=== PATIENT | female | born 1960 | race Caucasian/White ===

== ENCOUNTER 2017-10-06 18:06 | Emergency (ER) | payer BC ==
[2017-10-06 18:21] VITALS: BP 143/70
--- NOTE | 2017-10-06 18:32 | EDM.PDOC ---
ED HPI GENERAL MEDICAL PROBLEM - General Chief Complaint: General Stated Complaint: WEAKNESS Time Seen by Provider: 10/06/17 18:15 Source of Information: Reports: Patient, Family History Limitations: Reports: No Limitations - History of Present Illness INITIAL COMMENTS - FREE TEXT/NARRATIVE: 57 years old w f came with er SO to the ed after working for 1 week 16 hours a day. She denies any medical issues, no n/v/d no dizziness. get drug and ETOH tested at work on a regular basis, denies dysuria, denies any medical issues and refuses lab tests. No N/V/D or any other acute medical issues. BP 143/70 puls 50 temp 97.4 O2 100% on RA PE; WNWD W F extremely exhausted after working for 1 week a 16 hours shift daily Labs: Refus, gets drug and ETOH tested regularly at work Impression: Physical exhaustion Plan: D/C with instructions Onset Date: 09/29/17 Onset Time: 09:00 Duration: Week(s):, Getting Worse Location: Reports: Generalized Severity: Moderate Improves with: Reports: Rest Worsens with: Reports: Other (activity) Context: Reports: Other (physical exchaustion at work) - Related Data Allergies Allergy/AdvReac Type Severity Reaction Status Date / Time Penicillins Allergy Other Verified 10/06/17 18:18 Home Meds: Home Meds .Magnesium 1 tab PO DAILY 10/06/17 [History] Past Medical History Gastrointestinal History: Reports: Cholelithiasis [employer] History: Reports: Neurological History: Reports: Seizure - Past Surgical History Neurological Surgical History: Reports: Other (See Below) Social & Family History - Tobacco Use Smoking Status *Q: Never Smoker Second Hand Smoke Exposure: Yes - Caffeine Use Caffeine Use: Reports: None - Recreational Drug Use Recreational Drug Use: No ED ROS GENERAL - Review of Systems Review Of Systems: See Below Constitutional: Reports: Other (tired) HEENT: Reports: No Symptoms Respiratory: Reports: No Symptoms Cardiovascular: Reports: No Symptoms Endocrine: Reports: No Symptoms GI/Abdominal: Reports: No Symptoms : Reports: No Symptoms Musculoskeletal: Reports: No Symptoms Skin: Reports: No Symptoms Neurological: Reports: Other (extremely tired) Psychiatric: Reports: No Symptoms Hematologic/Lymphatic: Reports: No Symptoms Immunologic: Reports: No Symptoms ED EXAM, GENERAL - Physical Exam Exam: See Below Exam Limited By: No Limitations General Appearance: Alert, WD/WN, No Apparent Distress, Other (tired) Eye Exam: Bilateral Eye: Normal Inspection Ears: Normal External Exam Ear Exam: Bilateral Ear: Auricle Normal Nose: Normal Inspection, Normal Mucosa Throat/Mouth: Normal Inspection Head: Atraumatic, Normocephalic Neck: Normal Inspection, Supple, Non-Tender, Full Range of Motion Respiratory/Chest: No Respiratory Distress, Lungs Clear, Normal Breath Sounds, No Accessory Muscle Use, Chest Non-Tender Cardiovascular: Normal Peripheral Pulses, Regular Rate, Rhythm, No Edema, No Gallop, No JVD, No Murmur, No Rub Peripheral Pulses: 2+: Brachial (R) GI/Abdominal: Normal Bowel Sounds, Soft, Non-Tender, No Organomegaly, No Distention, No Abnormal Bruit, No Mass (Female) Exam: Deferred Rectal (Female) Exam: Deferred Back Exam: Normal Inspection, Full Range of Motion Extremities: Normal Inspection, Normal Range of Motion, Non-Tender, No Pedal Edema Neurological: Alert, Oriented, CN II-XII Intact, Normal Cognition, Normal Gait, Normal Reflexes Psychiatric: Depressed Mood Skin Exam: Warm, Dry, Intact, Normal Color, No Rash Lymphatic: No Adenopathy Course - Vital Signs Text/Narrative:: Labs: Pt is tested for drugs and ETOH on a regular basis. Pt refused blood tests , UA refused Impression: Physically exhausted, Dehydration Tx: none Plan: D/C with instructions Last Recorded V/S: Last Vital Signs Temp 36.3 C 10/06/17 18:15 Pulse 50 L 10/06/17 18:15 Resp 18 10/06/17 18:15 BP 143/70 H 10/06/17 18:15 Pulse Ox 100 10/06/17 18:15 Departure - Departure Time of Disposition: 18:26 Disposition: Home, Self-Care 01 Condition: Good Clinical Impression: Exhaustion - Discharge Information Instructions: Fatigue Referrals: PCP,None [Primary Care Provider] - Forms: ED Department Discharge, ED Return to Work/School Form Additional Instructions: Please sleep 8 hours per day, at least. Please find a daytime job with nights off. Please f/u with your PMD, please come back if your symptoms get worse despite sleep.
== END 2017-10-06 18:55 | disposition home or self-care (01) ==
LOC: FB.ED 18:06
DX: R53.83 Other fatigue (principal); E86.0 Dehydration; Z77.22 Contact with and (suspected) exposure to environmental tobacco smoke (acute) (chronic); Z79.899 Other long term (current) drug therapy; Z88.0 Allergy status to penicillin
CPT/HCPCS: 99283

== ENCOUNTER 2019-02-01 06:27 | Emergency (ER) | payer BC ==
[2019-02-01] MEDS ORDERED: Ketorolac 30 MG/ML SDV IVPUSH ONE (07:02)
[2019-02-01] MEDS ORDERED: Ondansetron 4 MG/2 ML SDV IVPUSH ONE ×2 (07:03→09:38)
--- NOTE | 2019-02-01 07:12 | EDM.PDOC ---
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 drank a glass of raspberry tea and glass of water, does not eat until her first break at 5:30 AM at 5 AM she had sudden onset of pain at her L flank while pushing a cart, had N/ V with "dry heaves", felt warm and sweating on no daily meds, says "I'm healthy," stopped smoking 30y ago, no prior CV or pul problems, no prior GI problems, no prior kidney stones only abd surgery was choly here with Flank Pain Score (Numeric/FACES): 8 - Related Data Allergies Allergy/AdvReac Type Severity Reaction Status Date / Time Penicillins Allergy Cannot Verified 02/01/19 06:47 Remember Home Meds: Home Meds .Magnesium 1 tab PO DAILY 10/06/17 [History] Acetaminophen/HYDROcodone [[place] 325-5 MG] 1 - 2 tab PO Q6H PRN #15 tab [Rx] Ketorolac [Toradol] 10 mg PO QID #20 tab 02/01/19 [Rx] Tamsulosin [Flomax] 0.4 mg PO DAILY #5 cap.er 02/01/19 [Rx] Past Medical History HEENT History: Reports: Impaired Vision Gastrointestinal History: Reports: Cholelithiasis [employer] History: Reports: Neurological History: Reports: Seizure - Past Surgical History Neurological Surgical History: Reports: Other (See Below) Social & Family History - Family History Family Medical History: Noncontributory - Tobacco Use Smoking Status *Q: Former Smoker Used Tobacco, but Quit: No - Caffeine Use Caffeine Use: Reports: None ED ROS GENERAL - Review of Systems Review Of Systems: See Below Constitutional: Reports: No Symptoms HEENT: Reports: No Symptoms Respiratory: Reports: No Symptoms Cardiovascular: Reports: No Symptoms Endocrine: Reports: No Symptoms GI/Abdominal: Reports: Abdominal Pain, Nausea, Vomiting : Reports: No Symptoms Musculoskeletal: Reports: No Symptoms Skin: Reports: No Symptoms Neurological: Reports: No Symptoms Psychiatric: Reports: No Symptoms Hematologic/Lymphatic: Reports: No Symptoms Immunologic: Reports: No Symptoms ED EXAM, GENERAL - Physical Exam Exam: See Below Exam Limited By: Other (lying on back, shifting around on bed trying to get comfortable, skin dry, able to sit without difficulty, some pain reported with DB altho able to take DB without splinting) General Appearance: Alert, WD/WN, Moderate Distress Ears: Normal External Exam Nose: Normal Inspection, Normal Mucosa, No Blood Throat/Mouth: Normal Inspection, Normal Lips, Normal Teeth, Normal Gums, Normal Oropharynx, Normal Voice, No Airway Compromise Head: Atraumatic, Normocephalic Neck: Normal Inspection, Supple, Non-Tender, Full Range of Motion Respiratory/Chest: No Respiratory Distress, Lungs Clear, Normal Breath Sounds, No Accessory Muscle Use, Chest Non-Tender Cardiovascular: Regular Rate, Rhythm, No Edema, No Gallop, No JVD, No Murmur GI/Abdominal: Soft, No Distention, No Mass, Other (1+ tender over L kidney to deep palpation) Back Exam: Normal Inspection, Full Range of Motion, Other (mild L CVAT) Extremities: Normal Inspection, Normal Range of Motion, Non-Tender, No Pedal Edema Neurological: Alert, Oriented, CN II-XII Intact, Normal Cognition, Normal Gait, No Motor/Sensory Deficits Psychiatric: Normal Affect, Normal Mood Lymphatic: No Adenopathy Course - Vital Signs Last Recorded V/S: Last Vital Signs Temp 36.8 C 02/01/19 11:30 Pulse 58 L 02/01/19 11:30 Resp 16 02/01/19 11:30 BP 122/67 02/01/19 11:30 Pulse Ox 98 02/01/19 11:30 - Orders/Labs/Meds Orders: Active Orders 24 hr Category Date Time Status EKG Documentation Completion [RC] ASDIRECTED Care 02/01/19 07:03 Active Abdomen Pelvis wo Cont [CT] Stat Exams 02/01/19 06:59 Taken CTA Abd Pelv w Cont [CT] Stat Exams 02/01/19 09:40 Taken Sodium Chloride 0.9% [Normal Saline] 1,000 ml Med 02/01/19 07:15 Active IV ASDIRECTED Sodium Chloride 0.9% [Saline Flush] Med 02/01/19 07:23 Active 10 ml FLUSH ASDIRECTED PRN Peripheral IV Insertion Adult [OM.PC] Routine Oth 02/01/19 07:23 Ordered EKG 12 Lead [EK] Routine Ther 02/01/19 07:03 Ordered Medication Orders Sodium Chloride (Normal Saline) 1,000 mls @ 999 mls/hr IV ASDIRECTED BOB Last Admin: 02/01/19 07:23 Dose: 999 mls/hr Sodium Chloride (Saline Flush) 10 ml FLUSH ASDIRECTED PRN PRN Reason: Keep Vein Open Last Admin: 02/01/19 07:20 Dose: 10 ml Labs: Laboratory Tests 02/01/19 02/01/19 02/01/19 Range/Units 06:30 07:18 07:18 WBC 6.5 (4.5-12.0) X10-3/uL RBC 4.84 (3.23-5.20) x10(6)uL Hgb 14.8 (11.5-15.5) g/dL Hct 43.0 (30.0-51.3) % MCV 88.8 (80-96) fL MCH 30.6 (27.7-33.6) pg MCHC 34.5 (32.2-35.4) g/dL RDW 13.6 (11.5-15.5) % Plt Count 281 (125-369) X10(3)uL MPV 7.2 L (7.4-10.4) fL Neut % (Auto) 69.8 (46-82) % Lymph % (Auto) 22.0 (13-37) % [place] % (Auto) 6.6 (4-12) % Eos % (Auto) 1 (1.0-5.0) % Baso % (Auto) 1 (0-2) % Neut # (Auto) 4.5 (1.6-8.3) # Lymph # (Auto) 1.4 (0.6-5.0) # [place] # (Auto) 0.4 (0.0-1.3) # Eos # (Auto) 0.1 (0.0-0.8) # Baso # (Auto) 0.1 (0.0-0.2) # Sodium 144 (135-145) mmol/L Potassium 4.7 (3.5-5.3) mmol/L Chloride 106 (100-110) mmol/L Carbon Dioxide 30 (21-32) mmol/L BUN 14 (7-18) mg/dL Creatinine 1.0 (0.55-1.02) mg/dL Est Cr Clr Drug Dosing 47.91 mL/min Estimated GFR (MDRD) 57 L (>60) BUN/Creatinine Ratio 14.0 (9-20) Glucose 102 (80-116) mg/dL Calcium 9.4 (8.6-10.2) mg/dL Total Bilirubin 0.5 (0.1-1.3) mg/dL AST 17 (5-25) IU/L ALT 24 (12-36) U/L Alkaline Phosphatase 81 (56-112) IU/L Troponin I (<0.017-0.056) ng/mL C-Reactive Protein (0.5-0.9) mg/dL Total Protein 7.6 (6.0-8.0) g/dL Albumin 3.8 (3.5-5.2) g/dL Globulin 3.8 g/dL Albumin/Globulin Ratio 1.0 Urine Color Yellow (YELLOW) Urine Appearance Clear (CLEAR) Urine pH 6.0 (5.0-6.5) Ur Specific [place] 1.010 (1.010-1.025) Urine Protein Negative (NEGATIVE) mg/dL Urine Glucose (UA) Normal (NORMAL) mg/dL Urine Ketones Negative (NEGATIVE) mg/dL Urine Occult Blood Trace (NEGATIVE) Urine Nitrite Negative (NEGATIVE) Urine Bilirubin Negative (NEGATIVE) Urine Urobilinogen Normal (NEGATIVE) mg/dL Ur Leukocyte Esterase Negative (NEGATIVE) Urine RBC 5-10 H (0-5) Urine WBC 0-5 (0-5) Ur Squamous Epith Cells Few H (NS,R,O) Urine Bacteria Few H (NS) 02/01/19 02/01/19 Range/Units 07:18 07:18 WBC (4.5-12.0) X10-3/uL RBC (3.23-5.20) x10(6)uL Hgb (11.5-15.5) g/dL Hct (30.0-51.3) % MCV (80-96) fL MCH (27.7-33.6) pg MCHC (32.2-35.4) g/dL RDW (11.5-15.5) % Plt Count (125-369) X10(3)uL MPV (7.4-10.4) fL Neut % (Auto) (46-82) % Lymph % (Auto) (13-37) % [place] % (Auto) (4-12) % Eos % (Auto) (1.0-5.0) % Baso % (Auto) (0-2) % Neut # (Auto) (1.6-8.3) # Lymph # (Auto) (0.6-5.0) # [place] # (Auto) (0.0-1.3) # Eos # (Auto) (0.0-0.8) # Baso # (Auto) (0.0-0.2) # Sodium (135-145) mmol/L Potassium (3.5-5.3) mmol/L Chloride (100-110) mmol/L Carbon Dioxide (21-32) mmol/L BUN (7-18) mg/dL Creatinine (0.55-1.02) mg/dL Est Cr Clr Drug Dosing mL/min Estimated GFR (MDRD) (>60) BUN/Creatinine Ratio (9-20) Glucose (80-116) mg/dL Calcium (8.6-10.2) mg/dL Total Bilirubin (0.1-1.3) mg/dL AST (5-25) IU/L ALT (12-36) U/L Alkaline Phosphatase (56-112) IU/L Troponin I < 0.017 L (<0.017-0.056) ng/mL C-Reactive Protein < 0.2 L (0.5-0.9) mg/dL Total Protein (6.0-8.0) g/dL Albumin (3.5-5.2) g/dL Globulin g/dL Albumin/Globulin Ratio Urine Color (YELLOW) Urine Appearance (CLEAR) Urine pH (5.0-6.5) Ur Specific [place] (1.010-1.025) Urine Protein (NEGATIVE) mg/dL Urine Glucose (UA) (NORMAL) mg/dL Urine Ketones (NEGATIVE) mg/dL Urine Occult Blood (NEGATIVE) Urine Nitrite (NEGATIVE) Urine Bilirubin (NEGATIVE) Urine Urobilinogen (NEGATIVE) mg/dL Ur Leukocyte Esterase (NEGATIVE) Urine RBC (0-5) Urine WBC (0-5) Ur Squamous Epith Cells (NS,R,O) Urine Bacteria (NS) Meds: Medications Generic Name Dose Route Start Last Admin Trade Name Freq PRN Reason Stop Dose Admin Sodium Chloride 1,000 mls @ 999 mls/hr 02/01/19 07:15 02/01/19 07:23 Normal Saline IV 999 mls/hr ASDIRECTED BOB Administration Sodium Chloride 10 ml 02/01/19 07:23 02/01/19 07:20 Saline Flush FLUSH 10 ml ASDIRECTED PRN Administration Keep Vein Open Discontinued Medications Generic Name Dose Route Start Last Admin Trade Name Freq PRN Reason Stop Dose Admin Hydromorphone HCl 1 mg 02/01/19 08:04 02/01/19 08:10 Dilaudid IVPUSH 02/01/19 08:05 1 mg ONETIME ONE Administration Hydromorphone HCl 1 mg 02/01/19 09:38 02/01/19 09:50 Dilaudid IVPUSH 02/01/19 09:39 1 mg ONETIME ONE Administration Iopamidol 100 ml 02/01/19 09:47 02/01/19 10:15 Isovue-370 (76%) IV 02/01/19 09:48 100 ml . DIRECTED ONE Administration Ketorolac Tromethamine 30 mg 02/01/19 07:02 02/01/19 07:25 Toradol IVPUSH 02/01/19 07:03 30 mg ONETIME ONE Administration Ondansetron HCl 4 mg 02/01/19 07:03 02/01/19 07:23 Zofran IVPUSH 02/01/19 07:04 4 mg ONETIME ONE Administration Ondansetron HCl 4 mg 02/01/19 09:38 Zofran IVPUSH 02/01/19 09:39 ONETIME ONE - Re-Assessments/Exams Free Text/Narrative Re-Assessment/Exam: 02/01/19 09:43 pain better after Toradol, then got worse, helped some with Dilaudid 1 mg IV but still rolling on bed and uncomfortable will give 2nd dose of Dilaudid 1 mg IV as well as 2nd dose of Zofran [address] abd/pelvis without contrast not definitive, possible 5 mm stone in pelvic area in midline altho no hydroureter and may be a vascular calcifcation does have 5-10 RBC/hpf on u/a initial PE with tender only at L flank over the kidneys seemed atypical for renal colic, particularly in the absence of hydro now with good BS (which goes against ischemia) and tender in LLQ (which is more c/w renal colic) will obtain an abd/pelvic CTA as multiple vascular calcifications are present to r/o ischemia pt and in agreement Free Text/Narrative Re-Assessment/Exam: 02/01/19 11:56 CTA of abd/pelvis is neg\\ pt reports pain in her lower back altho has been resting comfortably long discussion with pt and regarding tx of ureteral stones will give her a note to be off work for 4d until f/u with her PCP Departure - Departure Time of Disposition: 11:57 Disposition: Home, Self-Care 01 Condition: Good Clinical Impression: Ureteral stone, Ureteric colic, Microscopic hematuria - Discharge Information *PRESCRIPTION DRUG MONITORING PROGRAM REVIEWED*: Not Applicable *COPY OF PRESCRIPTION DRUG MONITORING REPORT IN PATIENT KISHA: Not Applicable Prescriptions: Acetaminophen/HYDROcodone [[place] 325-5 MG] 1 - 2 tab PO Q6H PRN #15 tab PRN Reason: Pain Ketorolac [Toradol] 10 mg PO QID #20 tab Tamsulosin [Flomax] 0.4 mg PO DAILY #5 cap.er Instructions: Kidney Stones, Renal Colic Referrals: PCP,None [Primary Care Provider] - Forms: ED Department Discharge Additional Instructions: For pain and to relax the ureter, take ketorolac 10 mg 1 tab 4 times a day until the stone is passed. To relax the ureter, take tamsulosin 0.4 mg 1 tab daily for 5 days. For breakthrough pain, take hydrocodone with acetaminophen 5/325 mg 1-2 tabs every 6 hours as needed. Use a heating pad or shower/tub for 10 minutes every hour as needed. No work for next 4 days. Screen your urine and take the stone in to your doctor. See your doctor in 4 days. Return to ED if the the pain is not managed adequately at home. Maintain fluids. - My Orders Last 24 Hours: My Active Orders 02/01/19 06:59 Abdomen Pelvis wo Cont [CT] Stat 02/01/19 07:03 EKG Documentation Completion [RC] ASDIRECTED EKG 12 Lead [EK] Routine 02/01/19 07:15 Sodium Chloride 0.9% [Normal Saline] 1,000 ml IV ASDIRECTED 02/01/19 07:23 Sodium Chloride 0.9% [Saline Flush] 10 ml FLUSH ASDIRECTED PRN Peripheral IV Insertion Adult [OM.PC] Routine 02/01/19 09:40 CTA Abd Pelv w Cont [CT] Stat - Assessment/Plan Last 24 Hours: My Active Orders 02/01/19 06:59 Abdomen Pelvis wo Cont [CT] Stat 02/01/19 07:03 EKG Documentation Completion [RC] ASDIRECTED EKG 12 Lead [EK] Routine 02/01/19 07:15 Sodium Chloride 0.9% [Normal Saline] 1,000 ml IV ASDIRECTED 02/01/19 07:23 Sodium Chloride 0.9% [Saline Flush] 10 ml FLUSH ASDIRECTED PRN Peripheral IV Insertion Adult [OM.PC] Routine 02/01/19 09:40 CTA Abd Pelv w Cont [CT] Stat
[2019-02-01] MEDS ORDERED: Sodium Chloride 0.9% 1,000 ML IV SCH (07:15)
[2019-02-01] MEDS ORDERED: Sodium Chloride 0.9% 10 ML Syringe FLUSH PRN (07:23)
[2019-02-01] MEDS ORDERED: HYDROmorphone 2 MG/ML SDV IVPUSH ONE ×2 (08:04→09:38)
[2019-02-01] MEDS ORDERED: Iopamidol 755 Mg/ML 100 ML Bottle IV ONE (09:47)
[2019-02-01 11:54] VITALS: BP 122/67; PULSE 58
== END 2019-02-01 12:15 | disposition home or self-care (01) ==
LOC: FB.ED 06:27
DX: N20.1 Calculus of ureter (principal); R31.0 Gross hematuria; Z88.0 Allergy status to penicillin
CPT/HCPCS: 36415; 74174; 74176; 80053; 81001; 84484; 85025; 86140; 93005; 96361; 96374; 96375; 96376; 99284; J1170; J1885; J2405; J7030; Q9967